=== PATIENT | female | born 1990 | race Hispanic/Latino ===

== ENCOUNTER 2017-05-07 06:23 | Emergency (ER) | payer BC ==
[2017-05-07 06:28] VITALS: BMI 43.7
[2017-05-07 06:32] VITALS: RESP 18; TEMP 99.6
--- NOTE | 2017-05-07 07:39 | ED PDOC ---
Arrival/HPI <Amando Sarmiento Bhupinder - Last Filed: 05/07/17 08:16> - General Historian: Patient - History of Present Illness Time/Duration: 24 hours Symptom Onset: Gradual Symptom Course: Worsening Quality: Stabbing Severity Level: 8 Activities at Onset: Rest, Light Context: Home <KeDarian - Last Filed: 05/07/17 08:26> - General Chief Complaint: Eye Problem Time Seen by Provider: 05/07/17 07:17 - History of Present Illness Narrative History of Present Illness (Text): 05/07/17 07:40 Ms. Mccauley is a 27 year old female with no significant past medical history who presents with a chief complaint of swelling of her right eyelid after she popped a pimple yesterday afternoon. She reports that yesterday she popped a pimple above her right eye and then noticed another pimple in the process but was unable to pop this as it was too painful. However, the area surrounding the second pimple became red and inflamed progressively throughout the day and the swelling had advanced to her right eyelid by this morning. She reports that she tried an organic cream for the swelling but reports no other medication use. She denies fever, chills, headache, neck stiffness, pain with eye movements, changes in her vision, purulent drainage or epistaxis. (Darian Dempsey) Past Medical History - Provider Review Nursing Documentation Reviewed: Yes - Travel History Have you recently traveled outside [place] w/in the past 3 mons?: No - Past History Past History: No Previous - Infectious Disease Hx of Infectious Diseases: None - Tetanus Immunization Tetanus Immunization: Unknown - Reproductive Menopause: No - Past Medical History Past Medical History: No Previous - Cardiac Hx Cardiac Disorders: No - Pulmonary Hx Respiratory Disorders: No - Neurological Hx Neurological Disorder: No - HEENT Hx HEENT Disorder: No - Renal Hx Renal Disorder: No - Endocrine/Metabolic Hx Endocrine Disorders: No - Hematological/Oncological Hx Blood Disorders: No - Integumentary Hx Dermatological Disorder: No Other/Comment: previous MRSA skin infection under right under arm a couple months ago. - Musculoskeletal/Rheumatological Hx Falls: Yes (slipped and fracture trimalleolar Rt ankle) - Gastrointestinal Hx Gastrointestinal Disorders: No - Genitourinary/Gynecological Hx Genitourinary Disorders: No - Psychiatric Hx Psychophysiologic Disorder: No Hx Substance Use: No - Past Surgical History Past Surgical History: No Previous - Anesthesia Hx Anesthesia Reactions: No Hx Malignant Hyperthermia: No - Suicidal Assessment Feels Threatened In Home Enviroment: No <DempseyDarian - Last Filed: 05/07/17 08:26> Family/Social History - Physician Review Nursing Documentation Reviewed: Yes Family/Social History: Neoplasm/Cancer (Breast Cancer in her grandmother; Kidney cancer "runs on her fathers side") Smoking Status: Never Smoked Hx Alcohol Use: Yes (social drinks only - beer on weekends) Hx Substance Use: No <Darian Dempsey - Last Filed: 05/07/17 08:26> Allergies/Home Meds <GuillerminaAmando Bhupinder - Last Filed: 05/07/17 08:16> <KeDarian - Last Filed: 05/07/17 08:26> Allergies/Adverse Reactions: Allergies No Known Allergies Allergy (Verified 08/07/13 19:14) Review of Systems - Physician Review All systems were reviewed & negative as marked: Yes - Review of Systems Constitutional: Normal. absent: Fevers, Night Sweats Eyes: Other (Redness and swelling of right eyelid). absent: Normal, Vision Changes, Photophobia, Eye Pain ENT: Normal. absent: Epistaxis Respiratory: Normal. absent: SOB Cardiovascular: Normal. absent: Chest Pain, Palpitations Gastrointestinal: Normal. absent: Abdominal Pain, Constipation, Diarrhea, Nausea, Vomiting Genitourinary Female: Normal. absent: Dysuria Musculoskeletal: Normal. absent: Neck Pain Skin: Cellulitis (Of right eyelid). absent: Normal Neurological: Normal. absent: Headache Endocrine: Normal Hemo/Lymphatic: Normal Psychiatric: Normal <Darian Dempsey - Last Filed: 05/07/17 08:26> Physical Exam Vital Signs Reviewed: Yes Temperature: Afebrile Blood Pressure: Normal Pulse: Regular Respiratory Rate: Normal Appearance: Positive for: Well-Appearing, Non-Toxic, Comfortable Pain Distress: None Mental Status: Positive for: Alert and Oriented X 3 - Systems Exam Head: Present: Normocephalic, Tenderness (Of right eyelid), Swelling, Other ( Erythema and edema extending from the right brow line to the right superior eyelid with no areas of underlying fluctuance). No: Atraumatic Pupils: Present: PERRL Extroacular Muscles: Present: EOMI Conjunctiva: Present: Normal Ears: Present: Normal Mouth: Present: Moist Mucous Membranes Pharnyx: Present: Normal. No: ERYTHEMA, EXUDATE Nose (External): Present: Atraumatic Nose (Internal): Present: Normal Inspection Neck: Present: Normal Range of Motion. No: Meningeal Signs, MIDLINE TENDERNESS , Paraspinal Tenderness, JVD, Lymphadenopathy, Trachea Midline Respiratory/Chest: Present: Clear to Auscultation, Good Air Exchange. No: Respiratory Distress, Accessory Muscle Use, Wheezes, Decreased Breath Sounds, Rales, Retracting, Rhonchi, Tachypneic Cardiovascular: Present: Regular Rate and Rhythm, Normal S1, S2, Peripheal Pulses Present. No: Murmurs, Tachycardic, Bradycardic Abdomen: Present: Normal Bowel Sounds. No: Tenderness, Distention, Peritoneal Signs Upper Extremity: Present: Normal Inspection. No: Cyanosis, Edema Lower Extremity: Present: Normal Inspection. No: Edema Neurological: Present: GCS=15, CN II-XII Intact, Speech Normal Skin: Present: Warm, Dry, Normal Color. No: Rashes Lymphatic: No: Cervical Adenopathy Psychiatric: Present: Alert, Oriented x 3, Normal Insight, Normal Concentration <Darian Dempsey - Last Filed: 05/07/17 08:26> Vital Signs Temp Pulse Resp BP Pulse Ox 05/07/17 08:13 121/75 05/07/17 08:05 94 H 18 97 05/07/17 06:24 99.6 F 105 H 18 151/88 H 94 L Medical Decision Making <Amando Sarmiento - Last Filed: 05/07/17 08:16> <Darian Dempsey - Last Filed: 05/07/17 08:26> ED Course and Treatment: A 27 year old female with swelling to her right eyelid after popping a pimple. In agreement with resident note, which includes further HPI details. Patient was seen and evaluated with resident, came up with plan and treatment together. (Amando Sarmiento) 05/07/17 08:11 Impression: 27 year old female with no significant past medical history who presents with a chief complaint of swelling of her right eyelid after she popped a pimple yesterday afternoon Plan: -Bactrim DS BID for 7 days -Discharge with instructions to return if symptoms persist or worsen or if she begins to experience pain with eye movement, confusion, headaches or changes in vision Prior Visits: 2014: Patient was seen and evaluated for trimalleolar fracture (Darian Dempsey) - PA / ASSISTANT CENTER DIRECTOR / Resident Statement MD/DO has reviewed & agrees with the documentation as recorded. MD/DO has examined the patient and agrees with the treatment plan. - Scribe Statement The provider has reviewed the documentation as recorded by the Scribe <Amando Sarmiento - Last Filed: 05/07/17 08:16> <Darian Dempsey - Last Filed: 05/07/17 08:26> - Scribe Statement Robyn Hardwick Provider Scribe Attestation: All medical record entries made by the Scribe were at my direction and personally dictated by me. I have reviewed the chart and agree that the record accurately reflects my personal performance of the history, physical exam, medical decision making, and the department course for this patient. I have also personally directed, reviewed, and agree with the discharge instructions and disposition. (Amando Sarmiento) Disposition/Present on Arrival <Amando Sarmiento - Last Filed: 05/07/17 08:16> - Present on Arrival Any Indicators Present on Arrival: No History of DVT/PE: No History of Uncontrolled Diabetes: No Urinary Catheter: No History of Decub. Ulcer: No History Surgical Site Infection Following: None - Disposition Have Diagnosis and Disposition been Completed?: Yes Disposition Time: 08:02 Patient Plan: Discharge <Darian Dempsey - Last Filed: 05/07/17 08:26> - Disposition Diagnosis: Swelling of right eyelid Disposition: HOME/ ROUTINE Condition: STABLE Discharge Instructions (ExitCare): Periorbital Cellulitis in Adults (ED) Additional Instructions: Ms. Mccauley, thank you for letting us take care of you today. Your provider was Dr. Sarmiento. You were treated for periorbital cellulitis. The emergency medical care you received today was directed at your acute symptoms. If you were prescribed any medication, please fill it and take as directed. It may take several days for your symptoms to resolve. Return to the Emergency Department if your symptoms worsen, do not improve, or if you have any other problems. Please contact your doctor or call one of the physicians/clinics you have been referred to that are listed on the Patient Visit Information form that is included in your discharge packet. Bring any paperwork you were given at discharge with you along with any medications you are taking to your follow up visit. Our treatment cannot replace ongoing medical care by a primary care provider (PCP) outside of the emergency department. Thank you for allowing the [facility] team to be part of your care today. Prescriptions: Sulfamethoxazole/Trimethoprim [Bactrim DS 800 mg-160 mg] 1 tab PO BID #14 tab Forms: [employer] (Estonian), WORK NOTE
[2017-05-07 08:06] VITALS: PULSE 94; O2SAT 97
[2017-05-07 08:14] VITALS: BP 121/75
== END 2017-05-07 08:17 | disposition home or self-care (01) ==
LOC: ED 06:23
DX: H57.8 Other specified disorders of eye and adnexa (principal)

== ENCOUNTER 2017-05-10 06:45 | Emergency (ER) | payer BC ==
[2017-05-10 06:45] VITALS: BMI 43.7
[2017-05-10 07:03] VITALS: TEMP 97.7
[2017-05-10 08:08] LABS: BASO # 0.03 K/mm3 (0.0-2.0); BASO % 0.3 % (0.0-3.0); EOS # 0.2 (0.0-0.7); EOS % 2.6 % (1.5-5.0); GRAN # 6.92 (1.4-6.5); GRAN % 74.5 % (50.0-68.0); HEMATOCRIT 41.6 % (36.0-48.0); LYMPH # 1.6 (1.2-3.4); LYMPH % 17.4 % (22.0-35.0); MEAN CELL VOLUME 91.4 fl (80.0-105.0); MEAN CORPUSCULAR HEMOGLOBIN 31.2 pg (25.0-35.0); MEAN CORPUSCULAR HGB CONC 34.1 g/dl (31.0-37.0); MEAN PLATELET VOLUME 9.1 fl (7.0-11.0); MONO # 0.5 (0.1-0.6); MONO % 5.2 % (1.0-6.0); RED CELL DISTRIBUTION WIDTH 12.2 % (11.5-14.5); WHITE BLOOD COUNT 9.3 10^3/ul (4.5-11.0)
[2017-05-10 08:16] LABS: ALB/GLOB RATIO 1.2 (1.1-1.8); ALKALINE PHOSPHATASE 59 U/L (38-126); ALT/SGPT 43 U/L (7-56); AST/SGOT 28 U/L (14-36); BILIRUBIN,TOTAL 0.8 mg/dL (0.2-1.3); BLOOD UREA NITROGEN 10 mg/dL (7-21); CARBON DIOXIDE 20 mmol/L (21-33); CHLORIDE 109 mmol/L (98-107); GFR AFRICAN-AMERICAN > 60; GLUCOSE,RANDOM 94 mg/dL (70-110); POTASSIUM 4.4 mmol/L (3.6-5.0); SODIUM 140 mmol/L (132-148); TOTAL PROTEIN 7.4 g/dL (5.8-8.3)
[2017-05-10] MEDS ORDERED: Iohexol 350 MG/100 ML VIAL ONE (08:31)
--- NOTE | 2017-05-10 09:27 | ED PDOC ---
Arrival/HPI - General Chief Complaint: Eye Problem Time Seen by Provider: 05/10/17 07:13 Historian: Patient - History of Present Illness Narrative History of Present Illness (Text): 05/10/17 09:22 A 27 year old female, with no significant past medical history, presents to the emergency department complaining of abscess above right eye. Patient reports she was seen 2 days ago and was given antibiotics for symptom. Patient is compliant with antibiotics. Area of abscess has increased in size. Patient denies of any vision changes, eye movement pain, discharge from eye, or any other complaints. No PMD Symptom Onset: Gradual Symptom Course: Unchanged Past Medical History - Provider Review Nursing Documentation Reviewed: Yes - Past History Past History: No Previous - Infectious Disease Hx of Infectious Diseases: None - Tetanus Immunization Tetanus Immunization: Unknown - Past Medical History Past Medical History: No Previous - Cardiac Hx Cardiac Disorders: No - Pulmonary Hx Respiratory Disorders: No - Neurological Hx Neurological Disorder: No - HEENT Hx HEENT Disorder: No - Renal Hx Renal Disorder: No - Endocrine/Metabolic Hx Endocrine Disorders: No - Hematological/Oncological Hx Blood Disorders: No - Integumentary Hx Dermatological Disorder: No Other/Comment: previous MRSA skin infection under right under arm a couple months ago. - Musculoskeletal/Rheumatological Hx Falls: Yes (slipped and fracture trimalleolar Rt ankle) - Gastrointestinal Hx Gastrointestinal Disorders: No - Genitourinary/Gynecological Hx Genitourinary Disorders: No - Psychiatric Hx Psychophysiologic Disorder: No Hx Substance Use: No - Past Surgical History Past Surgical History: No Previous - Anesthesia Hx Anesthesia Reactions: No Hx Malignant Hyperthermia: No - Suicidal Assessment Feels Threatened In Home Enviroment: No Family/Social History - Physician Review Nursing Documentation Reviewed: Yes Family/Social History: No Known Family HX Smoking Status: Never Smoked Hx Alcohol Use: Yes (social drinks only - beer on weekends) Hx Substance Use: No Allergies/Home Meds Allergies/Adverse Reactions: Allergies No Known Allergies Allergy (Verified 08/07/13 19:14) Review of Systems - Physician Review All systems were reviewed & negative as marked: Yes - Review of Systems Constitutional: absent: Fevers Eyes: Other (abscess above right eye; denies of any eye discharge). absent: Vision Changes, Eye Pain Physical Exam Vital Signs Reviewed: Yes Vital Signs Temp Pulse Resp BP Pulse Ox 05/10/17 10:54 103 H 17 131/88 99 11/24/17 09:00 101 H 17 132/87 98 05/10/17 07:02 97.7 F 108 H 18 135/89 96 Temperature: Afebrile Blood Pressure: Normal Pulse: Regular Respiratory Rate: Normal Appearance: Positive for: Well-Appearing Pain Distress: None Mental Status: Positive for: Alert and Oriented X 3 - Systems Exam Head: Present: Atraumatic, Normocephalic, Other (1 cm abscess above right eye; no eye movement pain) Pupils: Present: PERRL Extroacular Muscles: Present: EOMI Conjunctiva: Present: Normal Ears: Present: Other Mouth: Present: Moist Mucous Membranes Neck: Present: Normal Range of Motion Respiratory/Chest: Present: Clear to Auscultation, Good Air Exchange. No: Respiratory Distress, Accessory Muscle Use Cardiovascular: Present: Regular Rate and Rhythm, Normal S1, S2. No: Murmurs Abdomen: Present: Normal Bowel Sounds. No: Tenderness, Distention, Peritoneal Signs Back: Present: Normal Inspection Upper Extremity: Present: Normal Inspection. No: Cyanosis, Edema Lower Extremity: Present: Normal Inspection. No: Edema Neurological: Present: GCS=15, CN II-XII Intact, Speech Normal Skin: Present: Warm, Dry, Normal Color. No: Rashes Psychiatric: Present: Alert, Oriented x 3, Normal Insight, Normal Concentration Medical Decision Making ED Course and Treatment: 05/10/17 09:27 Impression: 27 year old female with abscess above right eye. Physical exam shows 1 cm indurate abscess above right eye, cellulitis and swelling of right eyelid, no eye discharge, no eye movement pain, globe is soft and nontender. Plan: -- Maxillofacial CT -- Labs -- Blood Culture -- Reassess and disposition Prior Visits: Notes and results from previous visits were reviewed. Patient was last seen in the emergency department on 05/07/2017 for swelling of her right eyelid after she popped a pimple. Patient was d/c home. Progress Notes: 05/10/2017 10:[address] IMPRESSION: There is severe preseptal soft tissue swelling over the right eye along the medial border and superiorly. There is no postseptal inflammation of the orbit. There is a 5 mm area of lucency which may represent early abscess formation. Mild bilateral cervical adenopathy and swelling of the tonsils and adenoids. Dictator: Edward Fobben MD - Lab Interpretations Lab Results: 05/10/17 07:45 05/10/17 07:45 Lab Results 05/10/17 07:45: Sodium 140, Potassium 4.4, Chloride 109 H, Carbon Dioxide 20 L, Anion Gap 16, BUN 10, Creatinine 0.7, Est GFR ( Amer) > 60, Est GFR (Non- Af Amer) > 60, Random Glucose 94, Calcium 9.0, Total Bilirubin 0.8, AST 28, ALT 43, Alkaline Phosphatase 59, Total Protein 7.4, Albumin 4.0, Globulin 3.4, Albumin/Globulin Ratio 1.2 05/10/17 07:45: WBC 9.3, RBC 4.55, Hgb 14.2, Hct 41.6, MCV 91.4, MCH 31.2, MCHC 34.1, RDW 12.2, Plt Count 267, MPV 9.1, Gran % 74.5 H, Lymph % (Auto) 17.4 L, Hays % (Auto) 5.2, Eos % (Auto) 2.6, Baso % (Auto) 0.3, Gran # 6.92 H, Lymph # 1.6, Hays # 0.5, Eos # 0.2, Baso # 0.03 I have reviewed the lab results: Yes - RAD Interpretation Radiology Orders: 05/10/17 07:30 MAXILLOFACIAL W/CONTRAST [CT] Stat - Scribe Statement The provider has reviewed the documentation as recorded by the Milenaibmelissa Lai Provider Scribe Attestation: All medical record entries made by the Scribe were at my direction and personally dictated by me. I have reviewed the chart and agree that the record accurately reflects my personal performance of the history, physical exam, medical decision making, and the department course for this patient. I have also personally directed, reviewed, and agree with the discharge instructions and disposition. Disposition/Present on Arrival - Present on Arrival Any Indicators Present on Arrival: No History of DVT/PE: No History of Uncontrolled Diabetes: No Urinary Catheter: No History of Decub. Ulcer: No History Surgical Site Infection Following: None - Disposition Have Diagnosis and Disposition been Completed?: Yes Diagnosis: Abscess Disposition: HOME/ ROUTINE Disposition Time: 11:00 Condition: GOOD Discharge Instructions (ExitCare): Abscess (ED) Additional Instructions: Thank you for letting us take care of you today. The emergency medical care you received today was directed at your acute symptoms. If you were prescribed any medication, please fill it and take as directed. It may take several days for your symptoms to resolve. Return to the Emergency Department if your symptoms worsen, do not improve, or if you have any other problems. Please contact your doctor or call one of the physicians/clinics you have been referred to that are listed on the Patient Visit Information form that is included in your discharge packet. Bring any paperwork you were given at discharge with you along with any medications you are taking to your follow up visit. Our treatment cannot replace ongoing medical care by a primary care provider (PCP) outside of the emergency department. Thank you for allowing the [facility] team to be part of your care today. Apply warm packs to the area several times times a day. Start the new antibiotic and continue the current antibiotic. Follow up with your doctor in 3 days for re-evaluation and further management. Prescriptions: Amoxicillin/Clavulanate [Augmentin 875 MG-125 MG] 1 tab PO Q12 #14 tab Referrals: Katlyn Perez, [Primary Care Provider] - Follow up with primary Forms: [employer] (Lao)
[2017-05-10 09:44] VITALS: RESP 17
--- NOTE | 2017-05-10 10:28 | CT ---
PROCEDURE: CT MAXILLOFACIAL BONES WITH CONTRAST HISTORY: cellulitis/abscess over right eye COMPARISON: None. TECHNIQUE: Contiguous axial CT images of the maxillofacial bones were obtained following administration of IV contrast. Coronal and sagittal reformats were generated. Intravenous contrast Dose: 100 cc of Omni 350 Radiation dose: Total exam DLP = 754 mGy-cm. This CT exam was performed using one or more of the following dose reduction techniques: Automated exposure control, adjustment of the mA and/or kV according to patient size, and/or use of iterative reconstruction technique. FINDINGS: NASAL BONES: Unremarkable. ORBITS: There is severe preseptal soft tissue swelling over the right eye along the medial border and superiorly. There is no postseptal inflammation of the orbit. There is a 5 mm area of lucency which may represent early abscess formation. This is seen on image 29 of series 4. PARANASAL SINUSES/ MASTOIDS: Clear. MAXILLA: Unremarkable. MANDIBLE/ TEMPOROMANDIBULAR JOINTS: Unremarkable. SKULL BASE: Unremarkable. TEMPORAL BONES: Middle ears and mastoid grossly unremarkable. OTHER FINDINGS: There is mild cervical adenopathy. There is also swelling of the tonsils and adenoids. IMPRESSION: There is severe preseptal soft tissue swelling over the right eye along the medial border and superiorly. There is no postseptal inflammation of the orbit. There is a 5 mm area of lucency which may represent early abscess formation. Mild bilateral cervical adenopathy and swelling of the tonsils and adenoids
[2017-05-10 10:56] VITALS: BP 131/88; PULSE 103; O2SAT 99
== END 2017-05-10 10:56 | disposition home or self-care (01) ==
LOC: ED 06:45
DX: H00.033 Abscess of eyelid right eye, unspecified eyelid (principal)
CPT/HCPCS: 70488; 80053; 85025; 87040; 99285; Q9967